=== PATIENT | male | born 1985 | race Caucasian/White ===

== ENCOUNTER 2022-11-04 13:34 | Emergency (ER) | payer OTHER ==
[~2022-11-04] VITALS: Ht 167.6 cm; Wt 59.0 kg
[2022-11-04 13:49] VITALS: BP 134/64
--- NOTE | 2022-11-04 14:00 | NUR ---
37 Y/O MALE BIB SELF C/O RIGHT MIDDLE FINGER LAC. PER PT HE CUT HIS FINGER ON A VASE. UNK TDAP, BLEEDING CONTROLLED WITH PRESSURE. GOOD COLOR ON FINGERTIP, CORE CUTTER LESS THAN 3 SECONDS NKA PMH: DENIES
[2022-11-04] MEDS ORDERED: LIDOCAINE MPF 1% 10 MG/ML VIAL INJ ONE (14:35)
--- NOTE | 2022-11-04 15:42 | NUR ---
BETADINE x NORMAL SALINE SOLUTION USED TO IRRIGATED R 3RD DIGIT OF CIRCUMFRENTIAL WOUND. + CMS.
--- NOTE | 2022-11-04 15:45 | NUR ---
PT AMB TO [facility]
--- NOTE | 2022-11-04 17:45 | NUR ---
NON ADHERENT APPLIED TO R 3RD DIGIT. + CMS
[2022-11-04] MEDS ORDERED: BACITRACIN OINT 500 UNITS/GM PKT TP ONE (17:46)
[2022-11-04] MEDS ORDERED: CEPH-588 PO (17:50)
[2022-11-04] MEDS ORDERED: BACI-416 TP (17:50)
[2022-11-04] MEDS ORDERED: IBUP-2213 PO (17:50)
[2022-11-04 18:07] VITALS: BP 132/80
--- NOTE | 2022-11-04 18:07 | NUR ---
Patient discharged with v/s stable. Written and verbal after care instructions ABOUT LACERATION CARE given and explained. Patient alert, oriented and verbalized understanding of instructions. Ambulatory with steady gait. All questions addressed prior to discharge. ID band removed. Patient advised to follow up with PMD. Rx of BACITRACIN OINT, KEFLEX, AND IBUPROFEN given. Patient educated on indication of medication including possible reaction and side effects. Opportunity to ask questions provided and answered.
== END 2022-11-04 18:07 | disposition home or self-care (01) ==
LOC: MED 13:34
DX: S61.212A Laceration without foreign body of right middle finger without damage to nail, initial encounter (principal); W45.8XXA Other foreign body or object entering through skin, initial encounter; Y93.89 Activity, other specified; Y92.89 Other specified places as the place of occurrence of the external cause; Y99.8 Other external cause status
CPT/HCPCS: 12004; 73130; 90471; 90715; 99283; J2001